=== PATIENT | male | born 1970 | race Two or more races ===

== ENCOUNTER → 2016-11-12 | Outpatient (CLI) | payer OTHER ==
--- NOTE | 2016-11-12 14:58 | REP ---
Clinical: Crush injury. Technique: AP, lateral, bilateral oblique views to the left fourth digit. Findings: There is an essentially nondisplaced fracture involving the distal phalanx/terminal tuft consistent with crush injury. No subcutaneous emphysema or radiodense foreign body. Remainder examination appears normal. Impression: Nondisplaced fracture involving the distal phalanx/terminal tuft 4th digit. Signed by Jose Perez MD 11/12/2016 02:50 P
== END ==
LOC: M LRY 14:15
PROVIDERS: ATTEND Nurse Practitioner Family
DX: S69.92XA Unspecified injury of left wrist, hand and finger(s), initial encounter (principal); W18.30XA Fall on same level, unspecified, initial encounter; Y92.009 Unspecified place in unspecified non-institutional (private) residence as the place of occurrence of the external cause

== ENCOUNTER 2018-12-27 16:25 | Emergency (ER) | payer OTHER ==
[~2018-12-27] VITALS: Ht 185.4 cm; Wt 131.8 kg
[2018-12-27] MEDS ORDERED: KETOROLAC 60 MG/2 ML VIAL (J1885) IM ONE (17:00)
--- NOTE | 2018-12-27 17:19 | REP ---
Clinical: Pain. Technique: AP, lateral, bilateral oblique views of the left ankle. Findings: Generalized age-related changes noted. Moderate medial swelling. No obvious acute fracture dislocation. Impression: Medial swelling. No acute fracture. Electronically Signed by Jose Perez MD 12/27/2018 05:10 P
[2018-12-27 18:12] VITALS: BP 128/62
== END 2018-12-27 18:13 | disposition home or self-care (01) ==
LOC: M ED 16:25 → EDBD 16:25 → M ED 18:13
DX: S93.402A Sprain of unspecified ligament of left ankle, initial encounter (principal); V28.4XXA Motorcycle driver injured in noncollision transport accident in traffic accident, initial encounter; Y92.410 Unspecified street and highway as the place of occurrence of the external cause
CPT/HCPCS: 73610; 96372; 99284; J1885

== ENCOUNTER → 2019-10-04 | Outpatient (CLI) | payer OTHER | LOC: M LABSMTC 10:36 | PROVIDERS: ATTEND Family Medicine | DX: Z11.59 Encounter for screening for other viral diseases (principal); Z20.828 Contact with and (suspected) exposure to other viral communicable diseases ==

== ENCOUNTER 2020-09-07 08:14 | Day surgery (SDC) | payer OTHER ==
[~2020-09-07] VITALS: Ht 185.4 cm; Wt 170.6 kg
[~2020-09-07 08:14] MED LIST: ADV250INH INH; METF10004 PO; NS 1,000 ML IV ONE
[2020-09-07] MEDS ORDERED: MIDAZOLAM INJ 2MG/2ML VIAL (J2250 PER 1MG) As Ordered ONE (09:23)
[2020-09-07] MEDS ORDERED: propofoL 200 MG/20 ML VIAL As Ordered ONE (09:48)
--- NOTE | 2020-09-07 10:01 | ROOR ---
Patient Name: Brian Amos Procedure Date: 09/07/2020 9:43 AM Date of : 1970 Age: 50 Room: [facility] Gender: Male Note Status: Finalized Procedure: Total Colonoscopy to Cecum Indications: Screening for colorectal malignant neoplasm Providers: London La MD Referring MD: MANASA GOEL MD Requesting Provider: Medicines: Monitored Anesthesia Care Complications: No immediate complications. Procedure: Pre-Anesthesia Assessment: - The heart rate, respiratory rate, oxygen saturations, blood pressure, adequacy of pulmonary ventilation, and response to care were monitored throughout the procedure. The Colonoscope was introduced through the anus and advanced to the cecum, identified by appendiceal orifice and ileocecal valve. The colonoscopy was performed without difficulty. The patient tolerated the procedure well. The quality of the bowel preparation was excellent. Findings: The perianal and digital rectal examinations were normal. Non-bleeding internal hemorrhoids were found during retroflexion. The hemorrhoids were small and Grade I (internal hemorrhoids that do not prolapse). Scattered small-mouthed diverticula were found in the recto-sigmoid colon, sigmoid colon and descending colon. The exam was otherwise without abnormality on direct and retroflexion views. Impression: - Non-bleeding internal hemorrhoids. - Diverticulosis in the recto-sigmoid colon, in the sigmoid colon and in the descending colon. - The examination was otherwise normal on direct and retroflexion views. - No specimens collected. - The exam was otherwise normal to the cecum. Recommendation: - Patient has a contact number available for emergencies. The signs and symptoms of potential delayed complications were discussed with the patient. Return to normal activities tomorrow. Written discharge instructions were provided to the patient. - High fiber diet. - Discharge patient to home. - Continue present medications. - Repeat colonoscopy in 10 years for screening purposes. - Return to referring physician. - The findings and recommendations were discussed with the patient. Procedure Code(s): --- Professional --- 80011, Colonoscopy, flexible; diagnostic, including collection of specimen(s) by brushing or washing, when performed (separate procedure) Diagnosis Code(s): --- Professional --- Z12.11, Encounter for screening for malignant neoplasm of colon K64.0, First degree hemorrhoids K57.30, Diverticulosis of large intestine without perforation or abscess without bleeding CPT copyright 2019 [employer] [place] [employer]. All rights reserved. The codes documented in this report are preliminary and upon senior project manager engineering review may be revised to meet current compliance requirements. London La MD London La MD 09/07/2020 10:00:38 AM Electronically signed by London La MD Number of Addenda: 0 Note Initiated On: 09/07/2020 9:43 AM Estimated Blood Loss: Estimated blood loss: none.
[2020-09-07 10:19] VITALS: BP 133/99
== END 2020-09-07 10:21 | disposition home or self-care (01) ==
LOC: M OPP 08:14
PROVIDERS: ATTEND Internal Medicine Gastroenterology
DX: Z12.11 Encounter for screening for malignant neoplasm of colon (principal); K57.30 Diverticulosis of large intestine without perforation or abscess without bleeding; K64.0 First degree hemorrhoids; G47.30 Sleep apnea, unspecified; Z79.84 Long term (current) use of oral hypoglycemic drugs; Z79.899 Other long term (current) drug therapy
CPT/HCPCS: 45378; J2250

== ENCOUNTER → 2024-01-17 | Outpatient (CLI) | payer OTHER ==
[~2024-01-17] MED LIST changes: -NS 1,000 ML IV ONE
== END ==
LOC: M CARPUL 10:25
PROVIDERS: ATTEND Internal Medicine
DX: R60.0 Localized edema (principal); R93.1 Abnormal findings on diagnostic imaging of heart and coronary circulation

== ENCOUNTER 2025-04-30 22:08 | Emergency (ER) | payer OTHER ==
[~2025-04-30] VITALS: Ht 185.4 cm; Wt 155.6 kg
[~2025-04-30 22:08] MED LIST changes: -ADV250INH INH; +ADVA1AER9 INH
[2025-05-01] MEDS: LIDOCAINE 1% MDV 20 ML VIAL SC ONE (00:05)
[2025-05-01] MEDS: TETANUS/DIPHTH/ACEL. PERTUSSIS 0.5 ML SYR IM.IMMUN ONE (00:37)
[2025-05-01] MEDS: NEOSPORIN TOP OINT 15 GM TOP ONE (00:38)
[2025-05-01 00:47] VITALS: BP 139/71; TEMP 97; O2SAT 97
== END 2025-05-01 00:48 | disposition home or self-care (01) ==
LOC: M ED 22:08
DX: S61.412A Laceration without foreign body of left hand, initial encounter (principal); W26.0XXA Contact with knife, initial encounter; E11.9 Type 2 diabetes mellitus without complications; I10 Essential (primary) hypertension; Y92.000 Kitchen of unspecified non-institutional (private) residence as the place of occurrence of the external cause; Y93.89 Activity, other specified; Y99.9 Unspecified external cause status; Z79.4 Long term (current) use of insulin; Z79.899 Other long term (current) drug therapy